=== PATIENT | female | born 1965 | race Caucasian/White ===

== ENCOUNTER 2023-11-21 14:49 | Emergency (ER) | payer OTHER ==
[~2023-11-21] VITALS: Ht 152.4 cm; Wt 65.8 kg
[2023-11-21] MEDS ORDERED: CYCLOBENZAPRINE10 MG PO (18:59)
[2023-11-21] MEDS ORDERED: DICLOFENAC POTA50 MG PO (18:59)
== END 2023-11-21 19:39 | disposition home or self-care (01) ==
LOC: ER 14:50
DX: M54.89 Other dorsalgia (principal)
CPT/HCPCS: 72100; 73502; 96372; 99284; J1885; J2360